=== PATIENT | female | born 1965 ===

== ENCOUNTER 2022-05-18 06:09 | Emergency (ER) | payer OTHER ==
[2022-05-18] MEDS ORDERED: NA CHLORIDE 0.9% 1,000 ML ONE ×2 (06:51→07:31)
[2022-05-18 07:03] LABS: Hematocrit 44.7 % (36.0-45.0); Lymphocytes % 31.3 % (15.3-44.8); MCV 85.9 fL (80-100)
[2022-05-18 07:10] LABS: ALT/SGPT 64 U/L (12-78); AST/SGOT 46 U/L (15-37); Alkaline Phosphatase 107 U/L (45-117); BUN Blood Urea Nitrogen 14 mg/dL (7-18); Bicarbonate 26 mmol/L (21-32); Bilirubin Total 0.3 mg/dL (0.2-1.0); Glomerular Filtration Rate 77 ml/min (=/>90); Glucose Level 125 mg/dL (74-106); Magnesium 2.4 mg/dL (1.8-2.4); NT PRO-BNP 8 pg/mL (<125); Potassium 3.7 mmol/L (3.5-5.1); Protein, Total 7.6 g/dL (6.4-8.2); Sodium Level 142 mmol/L (136-145)
[2022-05-18 07:13] LABS: Protime INR 0.89
[2022-05-18 07:22] LABS: Bilirubin Direct < 0.1 mg/dL (0-0.2); Troponin High Sensitivity < 3.0 pg/mL (<58.9)
[2022-05-18 07:22] LABS: Urine Blood Negative (Negative); Urine Glucose Negative (Negative); Urine Protein Negative (Negative)
[2022-05-18] MEDS ORDERED: METOPROLOL TAR 50 MG TAB ONE (07:30)
[2022-05-18] MEDS ORDERED: ASPIRIN 81 MG CHEWABLE TABLET ONE (07:30)
[2022-05-18] MEDS ORDERED: FAMOTIDINE 20 MG/2 ML VIAL IV ONE (07:30)
[2022-05-18 07:50] LABS: Thyroid Stimulating Hormone 4.93 uIU/mL (0.360-3.740)
--- NOTE | 2022-05-18 08:18 | RAD REPORT ---
EXAM DESCRIPTION: CT - Chest For Pe Angio - 05/18/2022 7:50 am CLINICAL HISTORY: Chest pain. dyspnea COMPARISON: No comparisons TECHNIQUE: CT angiogram of the pulmonary arteries was performed with MIP. All CT scans are performed using dose optimization technique as appropriate and may include automated exposure control or mA/KV adjustment according to patient size. FINDINGS: No evidence of pulmonary thromboembolism. No acute aortic finding demonstrated. The lungs are clear. No significant pericardial or pleural fluid. No concerning bony finding. IMPRESSION: No evidence of pulmonary thromboembolism. No acute lung findings.
--- NOTE | 2022-05-18 08:25 | RAD REPORT ---
EXAM DESCRIPTION: RAD - Chest Single View - 05/18/2022 6:43 am CLINICAL HISTORY: CHEST PAIN Chest pain. COMPARISON: CHEST SINGLE VIEW dated 07/05/2008; CHEST PA AND LAT 2 VIEW dated 12/28/2005 FINDINGS: Portable technique limits examination quality. The lungs are grossly clear. The heart is normal in size. No displaced fractures. IMPRESSION: No acute intrathoracic process suspected.
--- NOTE | 2022-05-18 08:26 | EDPHYS ---
Physician Documentation [facility] Name: Migdalia Jhaveri Age: 56 yrs Sex: Female : 1965 Arrival Date: 05/18/2022 Time: 06:11 Bed 7 Private MD: ED Physician Cristian Hernández HPI: 05/18 07:02 This 56 yrs old Female presents to ER via Ambulatory with complaints of carmen Shortness Of Breath, Fast Heart rate. 07:02 The patient has shortness of breath at rest, with light activity. Onset: The carmen symptoms/episode began/occurred 1 day(s) ago. Duration: The symptoms are continuous, and are steadily getting worse. The patient's shortness of breath has no apparent modifying factors. Associated signs and symptoms: Pertinent positives: chest pain. Severity of symptoms: At their worst the symptoms were mild moderate in the emergency department the symptoms are unchanged. The patient has not experienced similar symptoms in the past. 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 - Social history:: Smoking status: Patient denies any tobacco usage or history of. ROS: 07:03 Constitutional: Negative for fever, chills, and weight loss, Eyes: Negative for injury, carmen pain, redness, and discharge, ENT: Negative for injury, pain, and discharge, Neck: Negative for injury, pain, and swelling, Abdomen/GI: Negative for abdominal pain, nausea, vomiting, diarrhea, and constipation, Back: Negative for injury and pain, : Negative for injury, bleeding, discharge, and swelling, MS/Extremity: Negative for injury and deformity, Skin: Negative for injury, rash, and discoloration, Neuro: Negative for headache, weakness, numbness, tingling, and seizure. 07:03 Cardiovascular: Positive for chest pain, of the chest. 07:03 Respiratory: Positive for shortness of breath. Exam: 07:03 Constitutional: This is a well developed, well nourished patient who is awake, alert, carmen and in no acute distress. Head/Face: Normocephalic, atraumatic. Eyes: Pupils equal round and reactive to light, extra-ocular motions intact. Lids and lashes normal. Conjunctiva and sclera are non-icteric and not injected. Cornea within normal limits. Periorbital areas with no swelling, redness, or edema. ENT: Nares patent. No nasal discharge, no septal abnormalities noted. Tympanic membranes are normal and external auditory canals are clear. Oropharynx with no redness, swelling, or masses, exudates, or evidence of obstruction, uvula midline. Mucous membranes moist. Neck: Trachea midline, no thyromegaly or masses palpated, and no cervical lymphadenopathy. Supple, full range of motion without nuchal rigidity, or vertebral point tenderness. No Meningismus. Chest/axilla: Normal chest wall appearance and motion. Nontender with no deformity. No lesions are appreciated. Respiratory: Lungs have equal breath sounds bilaterally, clear to auscultation and percussion. No rales, rhonchi or wheezes noted. No increased work of breathing, no retractions or nasal flaring. Abdomen/GI: Soft, non-tender, with normal bowel sounds. No distension or tympany. No guarding or rebound. No evidence of tenderness throughout. Back: No spinal tenderness. No costovertebral tenderness. Full range of motion. Female : Normal external genitalia. Skin: Warm, dry with normal turgor. Normal color with no rashes, no lesions, and no evidence of cellulitis. MS/ Extremity: Pulses equal, no cyanosis. Neurovascular intact. Full, normal range of motion. Neuro: Awake and alert, GCS 15, oriented to person, place, time, and situation. Cranial nerves II-XII grossly intact. Motor strength 5/5 in all extremities. Sensory grossly intact. Cerebellar exam normal. Normal gait. Psych: Awake, alert, with orientation to person, place and time. Behavior, mood, and affect are within normal limits. 07:03 Cardiovascular: Rate: tachycardic, Rhythm: regular, Pulses: Pulses are 4+ in bilateral radial, brachial, femoral, popliteal, posterior tibial and and dorsalis pedis arteries.. Heart sounds: murmur, Edema: is not appreciated, JVD: is not appreciated. 07:03 ECG was reviewed by the Attending Physician. Vital Signs: 06:36 BP 157 / 95; Pulse 114; Resp 18; Temp 98.2; Pulse Ox 100% ; Weight 73.03 kg; Height 5 tw5 ft. 2 in. (157.48 cm); Pain 0/10; 07:33 BP 144 / 92; Pulse 114; Resp 19; Pulse Ox 100% ; jl7 08:58 BP 146 / 85; Pulse 93; Resp 18; Pulse Ox 100% on R/A; Pain 0/10; tp1 06:36 Body Mass Index 29.45 (73.03 kg, 157.48 cm) tw5 MDM: 06:23 Patient medically screened. [facility] 07:05 Differential diagnosis: Anemia CHF exacerbation, Chronic Obstructive Pulmonary Disease carmen Myocardial Infarction pneumonia, pulmonary edema, reactive airway disease, Unstable Angina. Antibiotic administration: Not indicated, the patient does not have an appreciated infiltrate. The patient's Wells Deep Vein Thrombosis Score was calculated as follows: Heart Rate >100 BPM (1.5 Pts) Total Score: 3-6 Pts - Mod Risk. The patient's pulmonary embolism risk score was calculated as follows: the patients heart rate is greater than 100 beats per minute (1.5 Pts) Total Score: 0-2 points. This patient was found to be at low risk for a pulmonary embolism by using the Well's assessment criteria. Immunization status: Influenza vaccine: Data reviewed: vital signs, nurses notes, lab test result(s), EKG, radiologic studies, CT scan, plain films. 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 Test interpretation: by ED physician or midlevel provider: ECG, plain radiologic studies. Counseling: I had a detailed discussion with the patient and/or guardian regarding: the historical points, exam findings, and any diagnostic results supporting the discharge/admit diagnosis, lab results, radiology results. 07:06 ED course: dr hernández to resume care. [facility] 08:24 Special discussion: I discussed with the patient/guardian in detail that at this point rn there is no indication for admission to the hospital. It is understood, however, that if the symptoms persist or worsen the patient needs to return immediately for re-evaluation. 05/18 06:28 Order name: Basic Metabolic Panel; Complete Time: 07:25 [facility] 05/18 06:28 Order name: CBC with Diff 05/18 06:28 Order name: D-Dimer; Complete Time: 07:25 carmen 05/18 06:28 Order name: LFT's; Complete Time: 07:25 [facility] 05/18 06:28 Order name: Magnesium; Complete Time: 07:25 [facility] 05/18 06:28 Order name: NT PRO-BNP; Complete Time: 07:25 carmen 05/18 06:28 Order name: PT-INR; Complete Time: 07:25 carmen 05/18 06:28 Order name: Troponin HS; Complete Time: 07:25 carmen 05/18 06:28 Order name: SARS-COV-2 RT PCR (Document "Date of Onset" if Symptomatic); Complete Time: carmen 07:05/18 06:40 Order name: Flu; Complete Time: 07:25 tw5 05/18 07:01 Order name: TSH; Complete Time: 08:08 carmen 05/18 07:23 Order name: Urine Dipstick-Ancillary; Complete Time: 07:25 EDMS 05/18 07:52 Order name: T4 Free; Complete Time: 08:08 EDMS 05/18 08:50 Order name: Manual Differential EDMS 05/18 06:28 Order name: XRAY Chest (1 view); Complete Time: 08:40 [facility] 05/18 06:28 Order name: EKG; Complete Time: 06:28 [facility] 05/18 06:28 Order name: Cardiac monitoring; Complete Time: 06:40 [facility] 05/18 06:28 Order name: EKG - Nurse/Tech; Complete Time: 06:40 [facility] 05/18 06:28 Order name: IV Saline Lock; Complete Time: 06:40 [facility] 05/18 06:28 Order name: Labs collected and sent; Complete Time: 06:40 [facility] 05/18 06:28 Order name: O2 Per Protocol; Complete Time: 06:40 [facility] 05/18 06:28 Order name: O2 Sat Monitoring; Complete Time: 06:40 [facility] 05/18 06:28 Order name: Urine Dipstick-Ancillary (obtain specimen); Complete Time: 07:24 [facility] 05/18 07:01 Order name: CT Chest For PE Angio; Complete Time: 08:23 carmen EC:03 Rate is 111 beats/min. Rhythm is regular. QRS Roland is Normal. NH interval is normal. carmen QRS interval is normal. QT interval is normal. No Q waves. T waves are Normal. No ST changes noted. Clinical impression: Sinus tachycardia and No evidence of ischemia. Interpreted by me. Administered Medications: 06:48 Drug: NS 0.9% 1000 ml Route: IV; Rate: 125 ml/hr; Site: left antecubital; tw5 09:03 Follow up: Response: No adverse reaction; IV Status: Order to discontinue infusion tp1 07:31 Drug: NS 0.9% 1000 ml Route: IV; Rate: 1 bolus; Site: left antecubital; jl7 09:03 Follow up: Response: No adverse reaction; IV Status: Completed infusion; IV Intake: tp1 1000ml 07:31 Drug: Lopressor (metoprolol TARTRATE) 50 mg Route: PO; jl7 08:59 Follow up: Response: No adverse reaction tp1 09:05 Follow up: Response: Other; heart rate decreased tp1 07:31 Drug: Aspirin Chewable Tablet 162 mg Route: PO; jl7 08:59 Follow up: Response: No adverse reaction tp1 07:31 Drug: Pepcid (famotidine) 20 mg Route: IVP; Site: left antecubital; jl7 08:59 Follow up: Response: No adverse reaction tp1 Disposition Summary: 05/18/22 08:25 Discharge Ordered Location: Home rn Problem: new rn Symptoms: have improved rn Condition: Stable rn Diagnosis - SARS-associated coronavirus as the cause of diseases classified elsewhere rn - Influenza due to other identified influenza virus with other manifestations rn Followup: rn - With: Private Physician - When: As needed - Reason: Recheck today's complaints, Re-evaluation by your physician Discharge Instructions: - Discharge Summary Sheet rn - Influenza, Adult rn - COVID-19 rn - Viral Illness, Adult rn Forms: - Medication Reconciliation Form rn - Thank You Letter rn - Antibiotic international student counselor - Prescription Opioid Use rn Signatures: Dispatcher [employer] Ac Savage MD MD cha Nieto, Roman, MD MD rn Leal, Jahala, RN RN Syeda Ritchie tw5 Syeda Lira tp1
--- NOTE | 2022-05-18 08:26 | ER ---
Nurse's Notes [facility] Name: Migdalia Jhaveri Age: 56 yrs Sex: Female : 1965 Arrival Date: 05/18/2022 Time: 06:11 Bed 7 Private MD: Diagnosis: SARS-associated coronavirus as the cause of diseases classified elsewhere;Influenza due to other identified influenza virus with other manifestations Presentation: 05/18 06:36 Chief complaint: Patient states: "Yesterday as I was leaving the grocery store I got tw5 SOB. Then last night I started to feel like my heart was racing. I finally got to sleep around 3 AM, but when I woke up this morning I still felt like my heart was racing and I was short of breath. I have been sick with an sinus infection, but I dont see how that could have anything to do with this.". Coronavirus screen: Vaccine status: Patient reports receiving the 2nd dose of the covid vaccine. [employer]ame[employer]. Ebola Screen: Patient negative for fever greater than or equal to 101.5 degrees Fahrenheit, and additional compatible Ebola Virus Disease symptoms Patient denies exposure to infectious person. Patient denies travel to an Ebola-affected area in the 21 days before illness onset. Initial Sepsis Screen: Does the patient meet any 2 criteria? No. Patient's initial sepsis screen is negative. Does the patient have a suspected source of infection? No. Patient's initial sepsis screen is negative. Risk Assessment: Do you want to hurt yourself or someone else? Patient reports no desire to harm self or others. Onset of symptoms was May 17, 2022. 06:36 Method Of Arrival: Ambulatory tw5 06:36 Acuity: JEFFERY 2 tw5 Triage Assessment: 06:38 General: Appears in no apparent distress. Behavior is cooperative, appropriate for age, tw5 anxious. Pain: Denies pain. Respiratory: Reports shortness of breath at rest since yesterday Onset: The symptoms/episode began/occurred yesterday, the patient has mild shortness of breath. 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 - Social history:: Smoking status: Patient denies any tobacco usage or history of. Screenin:41 Abuse screen: Denies threats or abuse. Denies injuries from another. Nutritional tw5 screening: No deficits noted. Tuberculosis screening: No symptoms or risk factors identified. Fall Risk None identified. Assessment: 06:41 General: Appears in no apparent distress. Cardiovascular: Rhythm is sinus tachycardia. tw5 Respiratory: Airway is patent Trachea midline Respiratory effort is even, Breath sounds are clear bilaterally. 07:40 Reassessment: Patient appears in no apparent distress at this time. No changes from tp1 previously documented assessment. Patient and/or family updated on plan of care and expected duration. Pain level reassessed. Patient is alert, oriented x 3, equal unlabored respirations, skin warm/dry/pink. Denies SOB, states SOB when speaking Patient denies pain at this time. Respiratory: Airway is patent Respiratory effort is even, unlabored, Breath sounds are clear. 08:57 Reassessment: Patient appears in no apparent distress at this time. No changes from tp1 previously documented assessment. Patient and/or family updated on plan of care and expected duration. Pain level reassessed. Patient is alert, oriented x 3, equal unlabored respirations, skin warm/dry/pink. Pain: Denies pain. Respiratory: Respiratory effort is even, unlabored. Vital Signs: 06:36 BP 157 / 95; Pulse 114; Resp 18; Temp 98.2; Pulse Ox 100% ; Weight 73.03 kg; Height 5 tw5 ft. 2 in. (157.48 cm); Pain 0/10; 07:33 BP 144 / 92; Pulse 114; Resp 19; Pulse Ox 100% ; jl7 08:58 BP 146 / 85; Pulse 93; Resp 18; Pulse Ox 100% on R/A; Pain 0/10; tp1 06:36 Body Mass Index 29.45 (73.03 kg, 157.48 cm) tw5 ED Course: 06:11 Patient arrived in ED. bp1 06:23 Ac Diana MD is Attending Physician. carmen 06:36 Syeda Perea is Primary Nurse. tw5 06:37 Patient has correct armband on for positive identification. Placed in gown. Bed in low mh5 position. Call light in reach. Side rails up X 1. Adult w/ patient. Warm blanket given. monitor car operator on. Pulse ox on. NIBP on. 06:37 EKG done, by ED staff, reviewed by Ac Diana MD. 5 06:38 Triage completed. tw5 06:38 Arm band placed on. tw5 06:40 COVID swab sent to lab. Flu and/or RSV swab sent to lab. Inserted saline lock: 20 gauge tw5 in left antecubital area, using aseptic technique. Blood collected. 06:40 SARS-COV-2 RT PCR (Document "Date of Onset" if Symptomatic) Sent. tw5 06:40 Basic Metabolic Panel Sent. tw5 06:40 CBC with Diff Sent. tw5 06:40 D-Dimer Sent. tw5 06:40 LFT's Sent. tw5 06:40 Magnesium Sent. tw5 06:41 NT PRO-BNP Sent. tw5 06:41 PT-INR Sent. tw5 06:41 Troponin HS Sent. tw5 06:42 Flu Sent. tw5 06:44 XRAY Chest (1 view) In Process Unspecified. EDMS 07:17 Attending Physician role handed off by Ac Diana MD rn 07:17 Cristian Hernández MD is Attending Physician. rn 07:52 CT Chest For PE Angio In Process Unspecified. EDMS 08:59 IV discontinued, intact, bleeding controlled, No redness/swelling at site. Pressure tp1 dressing applied. 09:07 No provider procedures requiring assistance completed. tp1 Administered Medications: 06:48 Drug: NS 0.9% 1000 ml Route: IV; Rate: 125 ml/hr; Site: left antecubital; tw5 09:03 Follow up: Response: No adverse reaction; IV Status: Order to discontinue infusion tp1 07:31 Drug: NS 0.9% 1000 ml Route: IV; Rate: 1 bolus; Site: left antecubital; jl7 09:03 Follow up: Response: No adverse reaction; IV Status: Completed infusion; IV Intake: tp1 1000ml 07:31 Drug: Lopressor (metoprolol TARTRATE) 50 mg Route: PO; jl7 08:59 Follow up: Response: No adverse reaction tp1 09:05 Follow up: Response: Other; heart rate decreased tp1 07:31 Drug: Aspirin Chewable Tablet 162 mg Route: PO; jl7 08:59 Follow up: Response: No adverse reaction tp1 07:31 Drug: Pepcid (famotidine) 20 mg Route: IVP; Site: left antecubital; jl7 08:59 Follow up: Response: No adverse reaction tp1 Medication: 09:06 VIS not applicable for this client. tp1 Intake: 09:03 IV: 1000ml; Total: 1000ml. tp1 Outcome: :25 Discharge ordered by . rn 09:07 Discharged to home ambulatory. tp1 09:07 Condition: good 09:07 Discharge instructions given to patient, Instructed on discharge instructions, follow up and referral plans. Demonstrated understanding of instructions, follow-up care. 09:08 Patient left the ED. tp1 Signatures: Dispatcher [employer] EDAc Hernandez MD MD cha Nieto, Roman, MD MD rn Martinez, Maria Elie Hurst RN RN jl7 Paniauga, Brittany bp1 Wood, Tiffany Syeda Loya tp1
[2022-05-18 08:49] LABS: Blood Morphology Comment NOT SEEN (NOT SEEN); Platelet Estimate ADEQ
[2022-05-18 09:18] VITALS: TEMP 98.2; O2SAT 100
[2022-05-18 09:25] VITALS: BP 146/85
--- NOTE | 2022-05-18 13:44 | EKG ---
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
== END 2022-05-18 09:08 | disposition home or self-care (01) ==
LOC: ER 06:09
DX: U07.1 COVID-19 (principal); J10.1 Influenza due to other identified influenza virus with other respiratory manifestations; Z88.0 Allergy status to penicillin
CPT/HCPCS: 96361; 93005; 85025; 80048; 36415; 83735; 85610; 85379; 80076; 84443; 81003; 84484; 84439; 83880; 87804 ×2; 71275; 71045; 96374; 99284; U0003; Q9967; J7030 ×2; J3490